=== PATIENT | female | born 1990 | race Caucasian/White ===

== ENCOUNTER 2020-10-31 23:50 | Emergency (ER) | payer OTHER ==
[~2020-10-31 23:50] MED LIST: BLOOD TEST; CYCLOBENZAPRINE10 MG PO; K-DUR TAB 20 M20 MEQ PO; K-TAB ER20 MEQ PO; MAGOX 400400 MG PO
== END 2020-11-01 01:30 | disposition left against medical advice (07) ==
LOC: ER1 23:50
DX: R07.9 Chest pain, unspecified (principal); Z53.21 Procedure and treatment not carried out due to patient leaving prior to being seen by health care provider
CPT/HCPCS: 93005